=== PATIENT | male | born 2000 | race Caucasian/White ===

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

== ENCOUNTER 2022-09-27 13:53 | Emergency (ER) | payer BC ==
[~2022-09-27] VITALS: Ht 167 cm; Wt 83.0 kg
[~2022-09-27 13:53] MED LIST changes: +NAPR-915 PO
[2022-09-27] MEDS ORDERED: D-ME473S11 (14:25)
[2022-09-27] MEDS ORDERED: AZITHROMYCIN (14:26)
--- NOTE | 2022-09-27 14:51 | ED General ---
General Chief Complaint: Cough/Cold/Flu Symptoms Stated Complaint: FEVER/COUGH/HEADACHE/LETHARGIC/NOT EATING/DRINKING Nursing Triage Note: ARRIVED VIA AMB TO ROOM 10 WITH COMPLAINTS OF BEING SICK FOR 2 WEEKS. REPORTS A TEMP OF 104 AND MOTRIN 800MG GIVEN AT 1000 THIS AM. WAS SEEN AT URGENT CARE YESTERDAY AND WAS TOLD HE HAD THE FLU WITHOUT A TEST BEING DONE AND SENT HOME ON COUGH MEDS. Source of Information: Patient Exam Limitations: No Limitations History of Present Illness Date Seen by Provider: Sep 27, 2022 Time Seen by Provider: 14:15 Initial Comments Patient is a 21-year-old male who presents to the emergency department for evaluation of flulike symptoms including body aches, fever, chills, cough, nasal congestion, and general malaise/fatigue. Patient was seen at a clinic yesterday where they empirically diagnosed him with flu. Patient reportedly was given a prescription for cough medicine as well as azithromycin. Patient states he has had a cough for approximately 2 weeks but states his symptoms acutely worsened 2 to 3 days ago. His is concerned that he may be dehydrated as he has not been wanting to drink fluids. Allergies and Home Medications Allergies Coded Allergies: Penicillins (Unverified Allergy, Unknown, 09/02/08) Patient Home Medication List Home Medication List Reviewed: Yes Promethazine/Dextromethorphan (Promethazine-Dm Syrup) 6.25 Mg-15 Mg/5 Ml Syrup, (Reported) Entered as Reported by: KEERTHI RUELAS on 09/27/221424 Last Action: New Order [Azithromycin] , (Reported) Entered as Reported by: KEERTHI RUELAS on 09/27/221425 Last Action: New Order Discontinued Medications Albuterol (Ventolin) 17 Gm Aerosol, 17 GM IH QID Discontinued Reason: No Longer Taking Prescribed by: JASWANT DIOR on 07/21/106 Last Action: Discontinued Naproxen (Naproxen) 500 Mg Tablet, 500 MG PO BID Discontinued Reason: No Longer Taking Prescribed by: LASHAUN SPEARS on 12/13/16 2314 Last Action: Discontinued [Symbicort 26949.2 Gm] , 1 PUFF PO BID, (Reported) Discontinued Reason: No Longer Taking Entered as Reported by: DOMEINCO RICE on 07/21/102225 Last Action: Discontinued Review of Systems Review of Systems Constitutional: see HPI, chills, fever, malaise EENTM: see HPI, nose congestion Respiratory: see HPI, cough Cardiovascular: no symptoms reported Gastrointestinal: no symptoms reported Genitourinary: no symptoms reported Musculoskeletal: no symptoms reported Skin: no symptoms reported Psychiatric/Neurological: No Symptoms Reported Hematologic/Lymphatic: No Symptoms Reported Immunological/Allergic: no symptoms reported Past Semkrua-Dhijdz-Pmhdvn Hx Patient Social History Tobacco Use?: No Substance use?: No Alcohol Use?: No Past Medical History Ear Surgery Asthma, Pneumonia Reproductive Disorders: No Physical Exam Vital Signs Vital Signs - First Documented 09/27/22 14:10 Temp 36.9 Pulse 109 Resp 16 B/P (MAP) 123/72 (89) Pulse Ox 96 O2 Delivery Room Air Capillary Refill : Less Than 3 Seconds Height, Weight, BMI Height: 5'6" Weight: 150lbs. 0oz. 68.792216yj; 29.00 BMI Method:Stated General Appearance: No Apparent Distress, WD/WN HEENT: PERRL/EOMI, TMs Normal, Normal ENT Inspection, Pharynx Normal Neck: Full Range of Motion, Normal Inspection, Non Tender, Supple Respiratory: Chest Non Tender, Lungs Clear, Normal Breath Sounds, No Accessory Muscle Use, No Respiratory Distress Cardiovascular: Regular Rate, Rhythm Gastrointestinal: Non Tender, Soft Neurologic/Psychiatric: Alert, Oriented x3, No Motor/Sensory Deficits, Normal Mood/Affect Skin: Normal Color, Warm/Dry Progress/Results/Core Measures Suspected Sepsis SIRS Temperature: Pulse: 109 Respiratory Rate: 16 Blood Pressure 123 /72 Mean: 89 Results/Orders Lab Results Laboratory Tests Test 09/27/22 14:11 Range/Units Influenza Type A (RT-PCR) Detected H Not Detecte Influenza Type B (RT-PCR) Not Detected Not Detecte SARS-CoV-2 RNA (RT-PCR) Not Detected Not Detecte My Orders Orders - 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 Vital signs are notable for mild tachycardia without hypotension or hypoxia. No adventitious lung sounds or increased work of breathing noted. No nuchal rigidity appreciated. Abdominal exam is benign without focal provocation of pain or rigidity/distention. Viral testing was obtained and patient is influenza A positive. He initially declined IV fluids but after further discussion with his spouse decided that they would be beneficial. Patient will be given a liter of normal saline after which she will be discharged. Discussed supportive care and anticipatory guidance. Follow-up with PCP. Return precautions for urgent symptomology discussed. Patient verbalized understanding. Departure Impression Primary Impression: Influenza A Disposition: 01 HOME, SELF-CARE Condition: Stable Departure-Patient Inst. Decision time for Depature: 15:30 Referrals: NO,LOCAL PHYSICIAN (PCP/Family) Primary Care Physician Patient Instructions: Flu, Adult ED JACLYN WRIGHT APRN Sep 27, 2022 14:51
[2022-09-27] MEDS ORDERED: NS IV 1000 ML 1,000 ML IV SCH (15:30)
[2022-09-27 16:07] VITALS: BP 145/79
== END 2022-09-27 16:07 | disposition home or self-care (01) ==
LOC: EDUNIT# 13:53 → ER 13:58
DX: J10.1 Influenza due to other identified influenza virus with other respiratory manifestations (principal); Z20.822 Contact with and (suspected) exposure to COVID-19; Z28.310 Unvaccinated for COVID-19
CPT/HCPCS: 87636; 99283